=== PATIENT | female | born 1970 | race Caucasian/White ===

== ENCOUNTER 2018-02-03 22:41 | Inpatient (IN) | payer OTHER ==
[~2018-02-03] VITALS: Ht 167.6 cm; Wt 133.9 kg
[2018-02-03 22:56] VITALS: BP 165/95
[2018-02-03] MEDS ORDERED: TORADOL IV STA (23:12)
[2018-02-03] MEDS ORDERED: NS 1000ML 1,000 ML IV STA (23:12)
[2018-02-03] MEDS ORDERED: ZOFRAN IV STA (23:12)
--- NOTE | 2018-02-03 23:16 | ER.PDOC ---
General Chief Complaint: Abdomen Pain Stated Complaint: POSS GALL BLADDER Time seen by MD: 23:14 Source: patient Exam Limitations: no limitations History of Present Illness Initial Comments Right abdominal pain Timing/Duration: 1-3 hours Severity/Quality: moderate, sharpness Radiation: back Associated Symptoms: nausea/vomiting Exacerbated by: nothing Relieved By: nothing Allergies: Coded Allergies: No Known Allergies (Unverified , 02/03/18) Vital Signs First Vital Signs Date Time Temp Pulse Resp B/P (MAP) Pulse Ox O2 Delivery O2 Flow Rate FiO2 02/03/18 22:51 97.5 86 18 97.5 02/03/18 22:51 98 Room Air 02/03/18 22:56 165/95 (118) Last Vital Signs Date Time Temp Pulse Resp B/P (MAP) Pulse Ox O2 Delivery O2 Flow Rate FiO2 02/03/18 22:56 97.5 86 18 165/95 (118) 98 Room Air 97.5 Past Medical History Medical History: hypertension Surgical History: hysterectomy, tubal LMP (females 10-50): hysterectomy Social History Smoking: non-smoker Alcohol Use: rarely Drug Use: none Constitutional: no symptoms reported EENTM: no symptoms reported Respiratory: no symptoms reported Cardiovascular: no symptoms reported Gastrointestinal: see HPI Genitourinary: no symptoms reported All Other Systems: Reviewed and Negative Physical Exam General Appearance: No Apparent Distress, WD/WN, Obese HEENT: PERRL/EOMI, Normal ENT Inspection, TMs Normal, Pharynx Normal Neck: Non-Tender, Full Range of Motion, Supple, Normal Inspection Respiratory: chest non-tender, lungs clear, normal breath sounds, no respiratory distress, no accessory muscle use Cardiovascular: Normal Peripheral Pulses, Regular Rate, Rhythm, No Edema, No Gallop, No JVD, No Murmur Gastrointestinal: Normal Bowel Sounds, No Organomegaly, No Pulsatile Mass, Guarding, Tenderness (right abdomen) Back: Normal Inspection, No CVA Tenderness, No Vertebral Tenderness Extremities: Normal Range of Motion, Non-Tender, Normal Inspection, No Pedal Edema, No Calf Tenderness, Normal Capillary Refill, Pelvis Stable 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 No periappendiceal abscess or fluid collection. No free fluid or free air. 2. Hepatic steatosis. Spoke to Dr. Bartholomew who told me to have Hospitalist admit the patient. Course Vitals & review Data Vital Sign - Last 24 Hours 02/03/18 02/03/18 02/03/18 22:51 22:51 22:56 Temp 97.5 97.5 97.5 97.5 97.5 97.5 Pulse 86 86 86 Resp B/P (MAP) 165/95 (118) Pulse Ox 98 98 O2 Delivery Room Air Room Air Departure Time of Disposition: 01:51 Disposition: 09 ADMITTED INPATIENT Impression: Primary Impression: Acute appendicitis Condition: Stable Referrals: Astrid ALANIZ (PCP) PRIMARY CARE PROVIDER Comments Admitted to Dr. Puma Temple to consult. Duration or Time Spent with Pa: 90 mins Problem Qualifiers Primary Impression: Acute appendicitis Acute appendicitis type: unspecified acute appendicitis type Qualified Codes : K35.80 - Unspecified acute appendicitis ABRAM,TRACY Kendall MD Feb 03, 2018 23:16
[2018-02-03] MEDS ORDERED: NS 1000ML 1,000 ML ONE (23:17)
[2018-02-03] MEDS ORDERED: ZOFRAN ONE (23:18)
[2018-02-03] MEDS ORDERED: TORADOL ONE (23:18)
[2018-02-03 23:21] LABS: BILIRUBIN,URINE NEGATIVE (NEGATIVE); UROBILINOGEN,URINE NORMAL (NEGATIVE)
--- NOTE | 2018-02-03 23:26 | PCM.EKG ---
[facility] Test Date: 2018-02-03 Test Time: 23:25:58 Pat Name: LAURA GALLAGHER Department: Room: 304 Gender: F Floor Coverings Installer: JOSHUA : 1970 Requested By: TRACY VALVERDE Order Number: [id number] Reading MD: Tracy VALVERDE Measurements Intervals [place] Rate: 79 P: 24 RI: 134 QRS: 36 QRSD: 84 T: 50 QT: 388 QTc: 444 Interpretive Statements Normal sinus rhythm Nonspecific ST abnormality Abnormal ECG No previous ECG available for comparison Electronically Signed On 02-04-2018 18:00:18 DISTRICT REPRESENTATIVE by Tracy VALVERDE Please click the below link to view image of tracing.
[2018-02-03 23:33] LABS: APPEARANCE,URINE SLIGHTLY CLOUDY (CLEAR); UA COLOR YELLOW (YELLOW)
[2018-02-03 23:42] LABS: BASOPHIL % 0.1 % (0.0-0.2); EOSINOPHIL # 0.1 10^3/uL (0.0-0.2); EOSINOPHIL % 0.4 % (0.0-5.0); HEMOGLOBIN 13.9 g/dL (12.0-15.0); LYMPHOCYTES # 1.8 10^3/uL (1.0-4.8); LYMPHOCYTES % 13.1 % (24.0-44.0); MEAN CELL HGB CONCENTRATION 33.4 g/dL (33-37); MEAN CORP VOLUME 86.7 fL (78-100); MONOCYTES # 0.7 10^3/uL (0.3-0.8); MONOCYTES % 5.4 % (5.0-12.0); NEUTROPHILS % 80.7 % (41.0-85.0); RED CELL DISTRIBUTION WIDTH 13.2 % (11.5-14.5); WHITE BLOOD CELL 13.6 10^3/uL (4.5-11.0)
[2018-02-04] VITALS (11 sets, daily range): BP systolic 120–156; BP diastolic 60–104
--- NOTE | 2018-02-04 | NUR ---
FELTON WOODSON RN FROM L&D STARTED IV X1 ATTEMPT.
[2018-02-04 00:01] LABS: CALCIUM 9.7 mg/dL (8.4-10.5)
--- NOTE | 2018-02-04 00:20 | NUR ---
LAB CMP RESULTS JUST NOW RESULTED AND CREATININE 0.[address] AND INFORMED OF CREATININE RESULTS.
--- NOTE | 2018-02-04 01:05 | DIREP ---
PROCEDURE:CT ABD/PELVIS WITH CONTRAST TECHNIQUE:No oral contrast was given. Following the intravenous administration of contrast material, axial cuts were obtained from the dome of the diaphragm to the ischial tuberosities. The images were viewed at lung, liver, bone, and soft tissue settings. Sagittal and coronal reconstructions are provided. COMPARISON:None. INDICATIONS:Right abdominal pain FINDINGS: LOWER CHEST:The lung bases are clear. LIVER:Diminished attenuation in comparison with the spleen, suggestive of hepatic steatosis. No focal hepatic lesion. BILIARY:Normal. PANCREAS:Normal. SPLEEN:Normal size. No focal splenic lesion. URINARY TRACT:Normal kidneys. Symmetric renal enhancement. No hydronephrosis. The bladder is partially decompressed, somewhat limiting evaluation. ADRENALS:Normal. AORTA/VASCULAR:Normal. No aneurysm. RETROPERITONEUM:Normal. No enlarged lymph nodes. BOWEL/MESENTERY:The appendix is fluid-filled, dilated (1.2 cm diameter), and demonstrates a thickened enhancing wall with mild adjacent inflammatory changes, consistent with acute appendicitis (image 56, series 3 and image 46, series [id number]). An 8 mm appendicolith is also noted at the appendiceal base. No periappendiceal abscess or fluid collection. No obstructive or inflammatory changes involving the remainder of the unopacified GI tract. No free fluid, free air, or adenopathy. ABDOMINAL WALL:Small, fat containing, umbilical hernia. PELVIS:Hysterectomy. No pelvic free fluid or adenopathy. Small pelvic phleboliths. BONES:Mild, reverse S shaped, thoracolumbar scoliosis with associated scattered degenerative changes, most prominent at the lumbosacral junction. No acute abnormality or suspicious osseous lesion. OTHER:Normal. CONCLUSION: 1. Findings consistent with acute appendicitis. No periappendiceal abscess or fluid collection. No free fluid or free air. 2. Hepatic steatosis. 3. Hysterectomy. 4. Additional findings, as above. Dictated by: Alfa Santiago MD on 02/04/2018 at 00:59 AM
[2018-02-04] MEDS ORDERED: ZOSYN 3.375 GRAM VIAL 3.375 GM in NS 100ML 100 ML IV STA (01:53)
--- NOTE | 2018-02-04 01:53 | PRM.ACF1 ---
Date and Time Date and Time Time: 01:53 Admission Criteria Forms APPENDECTOMY, WITH ABSCESS OR PERITONITIS, BY LAPAROSCOPY Clinical Indications for Procedure (Place 'X' for any and all applicable criteria): Procedure is indicated for ANY ONE of the following1,2,3,4 [x] I. Suspected acute appendicitis Extended stay beyond goal length of stay may be needed for: []a) [id number] []b) Comorbidities (eg, neoplasm, diverticulitis) []c) Older patients (75 years or older) The original [employer] content created by [employer] has been revised. The portions of the content which have been revised are identified through the use of italic text or in bold, and [facility] has neither reviewed nor approved the modified material. All other unmodified content is copyright [facility]. Please see references footnoted in the original [employer] edition 2015 TRACY VALVERDE MD Feb 04, 2018 01:53
[2018-02-04] MEDS: ZOSYN 3.375 GRAM VIAL 3.375 GM in NS 100ML 100 ML IV SCH ×4 (02:00→21:03)
[2018-02-04] MEDS ORDERED: ZOSYN 3.375 GRAM VIAL IV ONE ×2 (02:02→07:10)
[2018-02-04] MEDS ORDERED: NS 100ML 100 ML IV ONE ×2 (02:02→07:10)
--- NOTE | 2018-02-04 02:03 | NUR ---
HOME MEDS PT STATES SHE TAKES LISINOPRIL HYDROCHLOROTHIAZIDE BUT UNSURE OF THE DOSE. STATES WILL BRING UP IN THE MORNING TO KNOW DOSAGE.
--- NOTE | 2018-02-04 02:35 | NUR ---
[facility] PT AND BELONGINGS TAKEN TO [facility]SUR[facility] VIA WHEELCHAIR AT THIS TIME. REPORT GIVEN TO KWESI ZARATE.
--- NOTE | 2018-02-04 02:40 | NUR ---
Patient admitted to [facility] via wheelchair from ER. Received report from RUTH Long
--- NOTE | 2018-02-04 02:40 | NUR ---
Received report from Mercedes RN
[2018-02-04] MEDS: LACTATED RINGERS 1,000 ML IV SCH ×3 (02:59→22:00)
--- NOTE | 2018-02-04 04:02 | NUR ---
Surgical shower complete
[2018-02-04] MEDS: MORPHINE SULFATE IV PRN ×3 (05:05→21:04)
[2018-02-04] MEDS: ZOFRAN IV PRN ×2 (05:05→10:52)
--- NOTE | 2018-02-04 06:25 | NUR ---
Report Report given to dayshift
[2018-02-04] MEDS ORDERED: DECADRON ONE (06:59)
[2018-02-04] MEDS ORDERED: ZEMURON IV ONE (06:59)
[2018-02-04] MEDS ORDERED: NEOSTIGMINE ONE (06:59)
[2018-02-04] MEDS ORDERED: ZOFRAN ONE (06:59)
[2018-02-04] MEDS ORDERED: VERSED ONE (06:59)
[2018-02-04] MEDS ORDERED: SUBLIMAZE ONE (06:59)
[2018-02-04] MEDS ORDERED: TORADOL ONE (06:59)
[2018-02-04] MEDS ORDERED: LACTATED RINGERS 1,000 ML ONE (07:00)
[2018-02-04] MEDS ORDERED: LIDOCAINE 2% VIAL ONE (07:00)
[2018-02-04] MEDS ORDERED: DIPRIVAN IV ONE (07:00)
[2018-02-04] MEDS ORDERED: SODIUM CHLORIDE IRR BAG 1,000 ML ONE (07:01)
[2018-02-04] MEDS ORDERED: SENSORCAINE-MPF 0.25% VIAL ONE (07:01)
[2018-02-04] MEDS ORDERED: DILAUDID ONE (07:01)
[2018-02-04] MEDS ORDERED: SODIUM CHLORIDE IR ONE (07:01)
[2018-02-04] MEDS ORDERED: LOVENOX SQ ONE (07:09)
[2018-02-04] MEDS ORDERED: PEPCID IV STA (07:10)
[2018-02-04] MEDS ORDERED: GENTAMICIN SULFATE ONE (07:16)
[2018-02-04] MEDS: LOVENOX SQ SCH (07:26)
--- NOTE | 2018-02-04 07:28 | NUR ---
PT LEAVES TO OR AT THIS TIME
[2018-02-04] MEDS ORDERED: TRANSDERM-SCOP TD ONE (07:37)
[2018-02-04] MEDS ORDERED: TYLENOL PO ONE ×2 (07:37→08:00)
[2018-02-04] MEDS ORDERED: LISI1TAB7 PO (07:39)
[2018-02-04] MEDS ORDERED: TRANSDERM-SCOP TD STA (07:41)
--- NOTE | 2018-02-04 08:05 | CNH ---
DATE OF CONSULTATION: 02/04/2018 CHIEF COMPLAINT: Appendicitis. HISTORY OF PRESENT ILLNESS: A 47-year-old female with onset of generalized right-sided abdominal pain yesterday evening. She had nausea without vomiting since presentation to the hospital. She denies any history of loose stools. She was evaluated in the Emergency Department, found to have an elevated white count. CT is positive for appendicitis. Currently, she is admitted to Med/Surg floor to the service in the hospitalist. She is started on IV fluids and IV antibiotics. At the time of my assessment, she is alert, pleasant, cooperative. She reports pain is focal in the right lower quadrant. PAST MEDICAL HISTORY: Includes hypertension. She denies diabetes, heart disease. PAST SURGICAL HISTORY: Includes bilateral tubal ligation and previous partial hysterectomy. HOME MEDICATIONS: Include lisinopril/hydrochlorothiazide. She is not certain of her dose. ALLERGIES: No known drug allergies, although she does report itching from HYDROCODONE. SOCIAL HISTORY: Negative for tobacco or illicit drug use. Positive for occasional alcohol intake. Occupation: She works as a teacher. REVIEW OF SYSTEMS: SEASONAL ALLERGIES: She denies any seasonal allergies, runny nose or cough. CARDIOVASCULAR: She denies chest pain or trouble breathing. ENDOCRINE: She denies thyroid disease or diabetes. PULMONARY: She denies dyspnea or cough. ABDOMEN: As per HPI. MUSCULOSKELETAL: She denies any pain, stiffness, or swelling. GENITOURINARY: She denies any dysuria or frequency. She does report occasional nocturia. NEUROLOGIC: She denies any history of loss of conscious, seizures. PHYSICAL EXAMINATION: GENERAL: This is an afebrile, 47-year-old female in no acute distress. She is alert and oriented and cooperative with exam. VITAL SIGNS: Last temperature is 97.8, pulse 76, respiratory rate of 18, blood pressure 152/93. HEENT: Normocephalic, atraumatic. [place] mucous membranes. NECK: Supple and soft. Trachea is midline. No JVD or thyromegaly. HEART: Has regular rate and rhythm without obvious murmur. LUNGS: Clear to auscultation anteriorly bilaterally. ABDOMEN: The bowel sounds are positive. She has noticeable tenderness in the right lower quadrant but she has a negative Rovsing's. NEUROLOGIC: Cranial nerves 2-12 are grossly intact. She has no focal findings. SKIN AND INTEGUMENT: Warm and dry. EXTREMITIES: Show positive radial pulses bilaterally. Positive dorsal pedal pulse bilaterally. LABORATORY STUDIES: On admission show white count 13.6, hemoglobin 13.9, platelet count 296. Chemistry shows BUN of 14, creatinine 0.86. Coagulation showed PT of 9.8, PTT of 22.4. Serology is H. pylori positive. CT shows changes consistent with acute appendicitis. SURGICAL ASSESSMENT: 1. Acute appendicitis. 2. Clinical dehydration. 3. History of hypertension. 4. Morbid obesity, BMI is 47.6. PLAN: 1. The patient is seen and examined. Chart is reviewed. 2. I have discussed with the patient plans for laparoscopic appendectomy today and continue perioperative management with the primary service. iKke Bartholomew DO DR: DOMINGUEZ/risa JOB# [id number] CC:
[2018-02-04] MEDS ORDERED: ZOFRAN IV PRN (10:30)
[2018-02-04] MEDS ORDERED: VENTOLIN IH PRN (10:30)
[2018-02-04] MEDS ORDERED: PHENERGAN IV PRN (10:30)
[2018-02-04] MEDS ORDERED: BENADRYL IV PRN (10:30)
[2018-02-04] MEDS ORDERED: DILAUDID IV PRN (10:30)
[2018-02-04] MEDS ORDERED: QUELICIN ONE (10:40)
--- NOTE | 2018-02-04 10:47 | OPH ---
DATE OF SURGERY: 02/04/2018 PREOPERATIVE DIAGNOSIS: Acute appendicitis. POSTOPERATIVE DIAGNOSIS: Acute appendicitis with some suppurative changes. SURGEON: Kike Bartholomew DO CUSTOMER CARE ASSOCIATE: OR staff. ANESTHESIA: General by Myles Cotter CRNA plus local used on the field. PROCEDURES PERFORMED: 1. Laparoscopic appendectomy. 2. Therapeutic peritoneal lavage. SPECIMENS: Appendix to path with appendicolith. ESTIMATED BLOOD LOSS: 17 mL. COUNTS: At the completion of the case, the counts were correct per the OR staff. DESCRIPTION OF PROCEDURE: The patient is a very pleasant 47-year-old female known from previous evaluation. Prior to procedure, informed consent was obtained. At the time of procedure, she was taken to the operative suite and placed in supine position. After time-out, general anesthesia was obtained. Her abdomen was prepped and draped in normal fashion. Local was used to anesthetize supraumbilical midline incision created 5 mm trocar into the abdomen with Endo camera visualization. Once in the abdomen, pneumoperitoneum was induced to the level of 14 mmHg. Next, under camera visualization, two 5 mm trocar was placed in the left lower quadrant, one superiorly and one inferiorly. Attention was directed towards the right lower quadrant. There was noted to be acute changes with the appendix. The mesoappendix was divided using Harmonic scalpel to allow mobilization. This was noted to be significantly inflamed. Lateral peritoneal attachments were divided using Harmonic scalpel. Once the appendix was adequately mobilized to allow exposure of the base, 2 PDS Endoloops were placed on the base of the appendix and this was divided with a Harmonic scalpel. The appendix was retained with a grasper and removed through the superior trocar site with an EndoCatch bag. Once the appendix was removed, the camera was reinserted. Inspection was made. There was minimal purulent fluid in the pelvis, which was suctioned. Next, the right lower quadrant and the pelvis were copiously suctioned with sterile saline. Final inspection was made in the right lower quadrant and there was noted to be good hemostasis. The appendiceal stump was grossly normal and closure was pursued. The camera was placed in the superior trocar site and the fascia on the superior trocar site near the midline was closed with a 0 Vicryl using Luis Armando-Binu device. A [id number] 0 Vicryl suture was placed. Once the fascia was closed, a drain was passed in through the inferior trocar site through the pelvis to the right lower quadrant, secured to the point of exit with nylon suture. The remaining drain was removed after reduction of pneumoperitoneum and visualization of the trocar tract. All skin sites were localized and the skin was closed with 4-0 Monocryl in subcutaneous fashion. Remaining incisions, dressings were applied. Drapes were removed. The patient tolerated this procedure well. There were no acute complications noted. Kike Bartholomew DO DR: DOMINGUEZ/risa JOB# [id number] CC: Alexys Mosquera M.D.
--- NOTE | 2018-02-04 10:49 | NUR ---
PT ARRIVED BACK TO FLOOR AT THIS TIME CÉSAR APPI
--- NOTE | 2018-02-04 12:19 | PCM.HP ---
History of Present Illness Reason for Visit: (1) Acute appendicitis ICD Code: K35.80 - Unspecified acute appendicitis SNOMED: 14339321 Hx of Present Illness Patient is a 47 F PMH of HTN presenting with right sided abdominal pain with nausea. In ER, patient found to have acute appendicitis on Imaging. Surgery consulted and patient underwent Laparoscopic Appendectomy this AM. Patient alert but very tired from anesthesia. Patient has dry mouth but pain is controlled. Patient denies fever or current nausea. Patient home medications reconciled. She denies any other complaints. JONO drain in place. Past Medical History PMH-Cardiac: (1) Hypertension ICD Code: I10 - Essential (primary) hypertension SNOMED: 01455143 Past Surgical History: (1) Hx of appendectomy ICD Code: Z90.49 - Acquired absence of other specified parts of digestive tract SNOMED: 933868912 (2) Hx of hysterectomy ICD Code: Z90.710 - Acquired absence of both cervix and uterus SNOMED: 911702569, 587628734 (3) Hx of tubal ligation ICD Code: Z98.51 - Tubal ligation status SNOMED: 53061953, 258067217 Past Family History: (1) Family history non-contributory ICD Code: Z78.9 - Other specified health status SNOMED: 34527012 Past Social History PSH:Occupation: (1) No history of regular tobacco use ICD Code: Z78.9 - Other specified health status SNOMED: 621217221 PSH:Alcohol: (1) No history of alcohol use ICD Code: Z78.9 - Other specified health status SNOMED: 340006306 Travel History EBOLA RISK:Travel to/contact w: No Is pt experiencing any Ebola s: No Review of Systems Constitutional: No: Fever, Chills Eyes: No: Conjunctivae inflammation, Eyelid inflammation ENT: No: Nose discharge, Nose congestion Respiratory: No: Cough, Shortness of breath, SOB with excertion, Wheezing Cardiovascular: No: Chest Pain, Palpitations Gastrointestinal: Abdominal Pain; No: Nausea, Vomiting Genitourinary: No Hematuria, No Retention Musculoskeletal: No: neck pain, back pain Skin: No: Rash, Lesions, Jaundice Neurological: No: Weakness, Numbness, Incoordination, Change in speech, Confusion, Seizures Allergies: Coded Allergies: No Known Allergies (Unverified , 02/03/18) Scheduled Lisinopril/Hydrochlorothiazide (Lisinopril-Hctz 20-25 Mg Tab), 1 TAB PO DAILY, ( Reported) VTE VTE Risk Total Score: 2 VTE Risk Score VTE Risk: Score 0-1 = Low Risk (Aggressive mobilization; early ambulation; no VTE prophylaxis required) Score 2: Moderate Risk (Intermittent/Pneumatic Compression Device OR Lovenox/Heparin/Coumadin) Score 3-4: High Risk (Intermittent/Pneumatic Compression Device AND Lovenox/Heparin/Coumadin) Score > or =5: Highest Risk (Intermittent/Pneumatic Compression Device AND Lovenox/Heparin/Coumadin) VTE VTE Present on Admission: Yes Currently receiving anticoagul: No VTE Risk Total Score: 2 Exam Vital Signs Vital Signs Date Time Temp Pulse Resp B/P (MAP) Pulse Ox O2 Delivery O2 Flow Rate FiO2 02/04/18 10:54 97.4 60 16 134/79 (97) 94 Nasal [place]ula 3.00 97.4 General Appearance: Alert, Oriented X3, Cooperative, No acute distress HEENT: PERRLA, EOMI, Mucous membr. moist/pink Respiratory: Clear to auscultation, Normal air movement Cardiovascular: Regular rate, Normal S1, Normal S2, No murmurs Abdominal: Normal bowel sounds, Soft, No tenderness Extremities: No edema, Normal pulses, No tenderness/swelling Skin: No rash, No breakdown, No lesions Neuro: Normal speech, Strength at 5/5 X4 ext, Normal tone, Sensation intact, Cranial nerves 3-12 NL Psych/Mental Status: Mental status NL, Mood NL Assessment/Plan Assessment/Plan Assessment/Plan Patient is a 47 F PMH Hypertension presenting with nausea, right sided abdominal pain and found to have Acute Appendicitis. Patient History: Diabetes mellitus G8 SISTER Hypertension 32 MOTHER 33 FATHER G8 SISTER G8 SISTER G8 SISTER Plan 1. Acute Appendicitis: s/p Lap Appendectomy this AM. Cont routine postoperative care. General Surgery managing. CLD, pain control. IS. 2. HTN: cont SATHISH/HCTZ. Problem Qualifiers (1) Acute appendicitis: Acute appendicitis type: unspecified acute appendicitis type Qualified Codes: K35.80 - Unspecified acute appendicitis LESA ESCOBAR MD Feb 04, 2018 12:19
--- NOTE | 2018-02-04 12:59 | NUR ---
AMBULATE PT AMBULATED 100 FEET AT THIS TIME. PT STATES SHE DID FEEL A LITTLE NAUSEATED AND WANTED TO TAKE A NAP AT THIS TIME. FAMILY AT BEDSIDE WILL CONT TO MONITOR
--- NOTE | 2018-02-04 13:28 | NUR ---
DISCHARGE PLAN PATIENT LIVES AT HOME WITH HER AND TWO TEENAGE CHILDREN. 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 SHE DENIES NEED FOR ANY RESOURCES AT THIS TIME. DISCHARGE GOAL IS TO DISCHARGE HOME WITH HER FAMILY AND CONTINUE WITH ROUTINE SELF CARE. CM DEPT WILL CONTINUE TO MONITOR DISCHARGE NEEDS.
[2018-02-04] MEDS: HYDROCHLOROTHIAZIDE PO SCH (14:32)
[2018-02-04] MEDS: ZESTRIL PO SCH (14:32)
--- NOTE | 2018-02-04 15:39 | NUR ---
STATUS PT HAS BEEN AMBULATING HALLS AT THIS TIME. PT DENIES ANY NAUSEA BUT DOES STATE SHE IS SORE. PT DENIES ANY NEEDS FOR MEDICATION. WILL CONT TO MONITOR PT. MOTHER AT BEDSIDE CALL LIGHT IN REACH.
[2018-02-05 00:05] VITALS: BP 112/52
[2018-02-05] MEDS: ZOSYN 3.375 GRAM VIAL 3.375 GM in NS 100ML 100 ML IV SCH ×4 (02:27→20:36)
[2018-02-05] MEDS: MORPHINE SULFATE IV PRN ×3 (02:34→18:54)
[2018-02-05 04:30] VITALS: BP 119/71
[2018-02-05 05:26] LABS: HEMOGLOBIN 11.8 g/dL (12.0-15.0); LYMPHOCYTES # 1.1 10^3/uL (1.0-4.8); LYMPHOCYTES % 8.9 % (24.0-44.0); MEAN CELL HGB 29.3 pg (26-34); MEAN CELL HGB CONCENTRATION 32.6 g/dL (33-37); MEAN CORP VOLUME 89.8 fL (78-100); MEAN PLATELET VOLUME 10.6 fL (7.8-11.0); MONOCYTES # 0.7 10^3/uL (0.3-0.8); MONOCYTES % 5.8 % (5.0-12.0); NEUTROPHIL # 10.2 10^3/uL (1.8-7.7); RED CELL DISTRIBUTION WIDTH 13.3 % (11.5-14.5)
[2018-02-05 05:48] LABS: CALCIUM 8.8 mg/dL (8.4-10.5); CARBON DIOXIDE 26.3 mmol/L (20.0-32)
--- NOTE | 2018-02-05 06:41 | NUR ---
REPORT REPORT RECEIVED FROM NOE OROSCO ASSUMED CARE OF PT
[2018-02-05 07:10] VITALS: BP 121/77
[2018-02-05] MEDS: LOVENOX SQ SCH (08:54)
[2018-02-05] MEDS: HYDROCHLOROTHIAZIDE PO SCH (08:54)
[2018-02-05] MEDS: LACTATED RINGERS 1,000 ML IV SCH ×2 (08:54→20:33)
[2018-02-05] MEDS: ZESTRIL PO SCH (08:55)
[2018-02-05] MEDS ORDERED: AMOX1TAB60 PO (10:13)
[2018-02-05] MEDS ORDERED: LACT1CAP23 PO (10:16)
[2018-02-05] MEDS ORDERED: HYDR-3468 PO (10:17)
--- NOTE | 2018-02-05 10:30 | PRM.DC ---
Discharge Summary Date of Discharge: Feb 05, 2018 Time of Request to Discharge: 10:30 Additional Comments PT WITH HTN ADMITTED WITH SIRS AND ACUTE APPENDICITIS. UNDERWENT UNCOMPLICATED LAPAROSCOPIC APPENDECTOMY. 2ND POST OP DAY TOLERATING LIQUIDS,PAIN CONTROLLED, AMBULATING. EXPRESSED WISH FOR DC, CLEARED WITH DR. GARCIA, WHO WILL F/U NEXT WEEK. Patient History: Diabetes mellitus G8 SISTER Hypertension 32 MOTHER 33 FATHER G8 SISTER G8 SISTER G8 SISTER Non-contributory Abdomen: Other (EXPECTED PAIN) Scheduled Amoxicillin/Potassium Clav (Augmentin 500-125 Tablet), 1 EACH PO TID Lactobacillus Acidophilus (Acidophilus Lactobacillus), 1 EACH PO BID Lisinopril/Hydrochlorothiazide (Lisinopril-Hctz 20-25 Mg Tab), 1 TAB PO DAILY, ( Reported) Scheduled PRN Hydrocodone Bit/Acetaminophen ([place] 5-325 Tablet), 1 EACH PO Q6HR PRN for PAIN Sepsis Evaluation @ Discharge Vital Sign - Last 24 Hours 02/03/18 02/03/18 02/03/18 22:51 22:51 22:56 Temp 97.5 97.5 97.5 97.5 97.5 97.5 Pulse 86 86 86 Resp B/P (MAP) 165/95 (118) Pulse Ox 98 98 O2 Delivery Room Air Room Air Course Sepsis Screening Results: Posi: NEGATIVE Sepsis Qualifier/Stage: NO DEFINITE RISK Vitals & review Data Vital Sign - Last 24 Hours 02/03/18 02/03/18 02/03/18 22:51 22:51 22:56 Temp 97.5 97.5 97.5 97.5 97.5 97.5 Pulse 86 86 86 Resp 18 B/P (MAP) 165/95 (118) Pulse Ox 98 98 O2 Delivery Room Air Room Air LUIS BRODY MD Feb 05, 2018 10:30
[2018-02-05] MEDS: NORCO 5MG PO PRN ×2 (11:31→20:34)
[2018-02-05 12:31] VITALS: BP 106/58
[2018-02-05 17:55] VITALS: BP 114/49
[2018-02-05 19:42] VITALS: BP 123/73
[2018-02-06 00:08] VITALS: BP 132/72
[2018-02-06] MEDS: NORCO 5MG PO PRN ×2 (02:28→07:47)
[2018-02-06] MEDS: ZOSYN 3.375 GRAM VIAL 3.375 GM in NS 100ML 100 ML IV SCH ×2 (02:28→08:21)
[2018-02-06] MEDS: LACTATED RINGERS 1,000 ML IV SCH (04:00)
[2018-02-06 04:34] VITALS: BP 137/84
--- NOTE | 2018-02-06 06:44 | NUR ---
REPORT RECEIVED REPORT FROM KWESI DUNBAR. ASSUMED CARE FOR PATIENT AT THIS TIME.
[2018-02-06] MEDS: LOVENOX SQ SCH (08:20)
[2018-02-06 08:30] VITALS: BP 93/71
--- NOTE | 2018-02-06 09:03 | PRM.PN ---
Progress Note Subjective Date: Feb 06, 2018 Time: 09:00 Physician Notes: s/p lap appendectomy. Post op # 2. Feels well. Minimal discomfort. Ambulating. Tolerating clear liquids. Hungry Objective Review IO, Exams,& Results Problems Acute/Active Problems: (1) Acute appendicitis Vital Signs Date Time Temp Pulse Resp B/P (MAP) Pulse Ox O2 Delivery O2 Flow Rate FiO2 02/06/18 04:34 98.2 59 19 137/84 (101) 90 Room Air 98.2 02/04/18 19:55 21 02/04/18 15:29 2.00 Intake and Output 02/06/18 07:00 Intake Total 1940 ml Output Total 2080 ml Balance -140 ml Intake Oral 1940 ml Output Urine Total 2000 ml Drainage Total 80 ml Laboratory Tests Test 02/05/18 04:55 White Blood Count 12.0 10^3/uL Red Blood Count 4.03 10^6/uL Hemoglobin 11.8 g/dL Hematocrit 36.2 % Mean Corpuscular Volume 89.8 fL Mean Corpuscular Hemoglobin 29.3 pg Mean Corpuscular Hemoglobin Concent 32.6 g/dL Red Cell Distribution Width 13.3 % Platelet Count 237 10^3/uL Mean Platelet Volume 10.6 fL Neutrophils (%) (Auto) 85.0 % Lymphocytes (%) (Auto) 8.9 % Monocytes (%) (Auto) 5.8 % Neutrophils # (Auto) 10.2 10^3/uL Lymphocytes # (Auto) 1.1 10^3/uL Monocytes # (Auto) 0.7 10^3/uL Absolute Immature Granulocyte (auto 0.03 10^3 u/L Eosinophils % 0.0 % Basophils % 0.0 % Basophils # 0.0 10^3/uL Eosinophil Count 0.0 10^3/uL Sodium Level 140 mmol/L Potassium Level 3.3 mmol/L Chloride Level 103.0 mmol/L Carbon Dioxide Level 26.3 mmol/L Anion Gap 14.0 Blood Urea Nitrogen 11 mg/dL Creatinine 0.77 mg/dL Estimated GFR () 97.7 BUN/Creatinine Ratio 14.0 Glucose Level 125 mg/dL Calcium Level 8.8 mg/dL Total Bilirubin 0.6 mg/dL Aspartate Amino Transf (AST/SGOT) 15 U/L Alanine Aminotransferase (ALT/SGPT) 27 U/L Alkaline Phosphatase 57 U/L Total Protein 6.6 g/dL Albumin 3.0 g/dL Globulin 3.6 Percent Immature Gran (Cell Imm) 0.30 % Current Medications Medications (Trade) Dose Ordered Sig/Lashon PRN Reason Start Time Stop Time Status Last Admin Acetaminophen/ Hydrocodone Bitart (Wrens 5mg) 1 ea Q4HR PRN PAIN 02/05/18 11:00 03/07/18 10:59 02/06/18 07:47 Albuterol Sulfate (Ventolin) 2.5 mg OT PRN WHEEZING 02/04/18 10:30 02/09/18 10:29 Diphenhydramine HCl (Benadryl) 25 mg Q5MIN PRN NAUSEA / VOMITING 02/04/18 10:30 02/09/18 10:29 Enoxaparin Sodium (Lovenox) 40 mg Q24HRS 02/04/18 07:30 03/06/18 07:29 02/06/18 08:20 Hydrochlorothiazide (Hydrochlorothiazide) 25 mg DAILY 02/04/18 14:32 03/06/18 14:31 02/05/18 08:54 Lisinopril (Zestril) 20 mg DAILY 02/04/18 14:32 03/06/18 14:31 02/05/18 08:55 Morphine Sulfate (Morphine Sulfate) 2 mg Q4H PRN PAIN 02/04/18 02:00 03/06/18 01:59 02/05/18 18:54 Ondansetron HCl (Zofran) 4 mg PRN PRN nv 02/04/18 10:30 02/09/18 10:29 Ondansetron HCl (Zofran) 4 mg Q4H PRN NAUSEA / VOMITING 02/04/18 02:00 03/06/18 01:59 02/04/18 10:52 Piperacillin Sod/ Tazobactam Sod 3.375 gm/Sodium Chloride 100 ml @ 100 mls/hr Q6H 02/04/18 02:00 03/06/18 01:59 02/06/18 08:21 Promethazine HCl (Phenergan) 6.25 mg PRN PRN NAUSEA / VOMITING 02/04/18 10:30 02/09/18 10:29 Heart: Regular rate, Normal S1, Normal S2, No murmurs Abdomen: Soft, No tenderness, Other (JONO serosanginous) Lungs: Clear to auscultation, Normal air movement Skin: No rashes Assessment & Plan: Assessment Patient is doing well. Plan 1) Advance diet as tolerated. 2) OK to go home 3) Follow up on Thursday next week to have JONO removed. CECILIO PARHAM MD Feb 06, 2018 09:03
--- NOTE | 2018-02-06 10:56 | NUR ---
DISCHARGE PICTURES TAKEN AT THIS TIME.
[2018-02-06 11:08] VITALS: BP 93/71
--- NOTE | 2018-02-06 11:09 | NUR ---
DISCHARGE PATIENT BEING DISCHARGED HOME AT THIS TIME IN STABLE CONDITION. PATIENT STATES THAT SHE HAS PLENTY OF HELP AT HOME WITH HER CARE. DENIES NEEDING ADDITIONAL RESOURCES AT THIS TIME. RELINQUISHED CARE FOR PATIENT AT THIS TIME.
--- NOTE | 2018-02-07 03:46 | PNH ---
DATE: SUBJECTIVE: The patient was tentatively scheduled for discharge yesterday and the chart completion for discharge was done. Please refer to that document. However, her pain control was tenuous during the afternoon and so she stayed until the next morning. Today, she is feeling better, good pain control, advancing from a clear liquid diet to a full liquid. OBJECTIVE: VITAL SIGNS: Temperature 98, pulse 60, respirations 18, BP 137/84. LUNGS: Clear. CARDIOVASCULAR: Regular rate and rhythm. IMPRESSION AND PLAN: 1. Acute appendicitis, status post laparoscopic appendectomy. 2. Essential hypertension, controlled with medication, followup as in discharge note. Bj Cherry MD DR: ZA/risa JOB# [id number]
== END 2018-02-06 11:55 | disposition home or self-care (01) | DRG 342 ==
LOC: ER 22:41 → MS 02-04 02:00
PROVIDERS: ADMIT Surgery; ATTEND Surgery
PROC: 0DTJ4ZZ Resection of Appendix, Percutaneous Endoscopic Approach (ICD-10-PCS; principal; 2018-02-04 08:46)
DX: K35.80 Unspecified acute appendicitis (principal); Z68.42 Body mass index [BMI] 45.0-49.9, adult; I10 Essential (primary) hypertension; K66.8 Other specified disorders of peritoneum; E86.0 Dehydration; E66.01 Morbid (severe) obesity due to excess calories; Z90.710 Acquired absence of both cervix and uterus; Z98.51 Tubal ligation status; Z88.5 Allergy status to narcotic agent
CPT/HCPCS: 36415; 44970; 74177; 80053; 81000; 83690; 85025; 85610; 85730; 86677; 87040; 88302; 93005; 96361; 96374; 96375; 99285; A4217; J0330; J1100; J1580; J1650; J1885; J2001; J2250; J2270; J2405; J2543; J2710; J3010; J3490; J7030; J7050; J7120

== ENCOUNTER 2020-10-25 20:06 | Emergency (ER) | payer OTHER ==
[~2020-10-25] VITALS: Ht 170.2 cm; Wt 136.1 kg
[~2020-10-25 20:06] MED LIST: AMOX1TAB60 PO; HYDR-3468 PO; LACT1CAP23 PO; LISI1TAB20 PO
--- NOTE | 2020-10-25 20:30 | NUR ---
Patient presents to ED with C/O Covid symptoms. Patient states, "I tested positive last Thursday for Covid and still have a fever, cough, congestion, and headache. I feel aweful and nothing is helping at home. I tried Tylenol, but still have a fever." Patient is alert and oriented, no signs of distress noted. Patient is afebrile, pain is 3/10 generalized aching. No other complaints at this time.
[2020-10-25 20:40] VITALS: BP 138/75
--- NOTE | 2020-10-25 21:25 | ER.PDOC ---
General Chief Complaint: Fever Stated Complaint: COVID+,FEVER,HEADACHE,NAUSEA,DIARRHEA Time seen by MD: 21:00 Source: patient Exam Limitations: no limitations History of Present Illness Initial Comments Patient return to the ER after been seen 6 days ago and diagnosed with COVID. Patient is not feeling better, her cough is worst and hurts, not able to eat or drink much due to the nausea and vomit, also concern about getting dehydrate due to the diarrhea. Achy all over, just feeling miserable. Timing/Duration: gradual Severity: mild Associated Symptoms: fever/chills, runny nose, sore throat, cough, mild SOB, headache Worsen By: deep breathing Prior symptoms/Treatment: Recenly Seen, Treated by Doctor Allergies: Coded Allergies: No Known Allergies (Unverified , 02/03/18) Home Meds Active Scripts Hydrocodone Bit/Acetaminophen (NORCO 5-325 TABLET) 5-325 Ta1 Ea Tablet, 1 EACH PO Q6HR PRN for PAIN, #14 TABLET Prov:LUIS BRODY MD 02/05/18 Lactobacillus Acidophilus (ACIDOPHILUS LACTOBACILLUS) 1 Each Capsule, 1 EACH PO BID, #20 Prov:LUIS BRODY MD 02/05/18 Amoxicillin/Potassium Clav (AUGMENTIN 500-125 TABLET) 1 Each Tablet, 1 EACH PO TID, #21 Prov:LUIS BRODY MD 02/05/18 Reported Medications Lisinopril/Hydrochlorothiazide (LISINOPRIL-HCTZ 20-25 MG TAB) 1 Each Tablet, 1 TAB PO DAILY, #30 TAB 5 Refills 02/04/18 Constitutional: chills, fever, malaise EENTM: no symptoms reported Respiratory: cough, shortness of breath, SOB with exertion Cardiovascular: no symptoms reported Gastrointestinal: diarrhea, nausea, vomiting Genitourinary: no symptoms reported Musculoskeletal: muscle pain Skin: no symptoms reported Psychiatric/Neurological: headache Endocrine: no symptoms reported Past Medical History Medical History: hypertension Surgical History: hysterectomy, tubal Social History Alcohol Use: rarely Drug Use: none Physical Exam General Appearance: alert, mild distress Eye: eyes nml inspection Ear: ear nml, TM erythema Nose: nose nml, rhinorrhea Throat: pharynx nml Neck: nml inspection Respiratory: respiratory distress (mild) Abdomen: non-tender CVS: reg rate & rhythm, heart sounds nml Skin: color nml, no rash, warm/dry Extremities: non-tender, nml ROM, no pedal edema NEURO/PSYCH: oriented x 3, CN's nml as tested Results/Orders Results/Orders Vital Signs Date Time Temp Pulse Resp B/P (MAP) Pulse Ox O2 Delivery O2 Flow Rate FiO2 10/25/20 20:40 98.7 93 18 138/75 (96) 92 Room Air 10/25/20 20:40 98.7 93 18 10/25/20 20:40 98.7 93 18 92 ER DEPART Departure Time of Disposition: 21:23 Disposition: 01 HOME / SELF CARE / HOMELESS Impression: Primary Impression: Gastroenteritis due to COVID-19 virus Additional Impression: Dyspnea Condition: Improved Referrals: Astrid ALANIZ (PCP) PRIMARY CARE PROVIDER Additional Instructions: YOU WERE SEEN IN THE ER TODAY BY DR. GUADALUPE AND THE FOLLOWING WAS COMPLETED: VITAL SIGNS, EXAMINATION BY PHYSICIAN. RX: Comments Comprehensive ER evaluation was performed of the patient's symptoms Patient was given the opportunity to have all of them questions addressed. Medication side effects and Propper use of the medication discussed in detail. Patient was involved in the medical decision making. Patient voiced understanding and agreement with the plan of care.. Follow up with your Primary Care Provider for further treatment and management. Take your medication as prescribed. Drink plenty of fluids and avoid fast food and process foods. Use OTC medication as need it. If symptoms worsens or new symptoms start please return to the ER. The patient is stable and no toxic at the moment of the Discharge. Duration or Time Spent with Pa: 10 Return to Work/School Can a patient return to work?: No Can a patient return to school: No Problem Qualifiers REGINA DELONG MD Oct 25, 2020 21:24
== END 2020-10-25 21:26 | disposition home or self-care (01) ==
LOC: ER 20:06
DX: U07.1 COVID-19 (principal); K52.9 Noninfective gastroenteritis and colitis, unspecified; R06.00 Dyspnea, unspecified; J02.9 Acute pharyngitis, unspecified; I10 Essential (primary) hypertension; Z79.899 Other long term (current) drug therapy; Z90.710 Acquired absence of both cervix and uterus
CPT/HCPCS: 99283